=== PATIENT | male | born 1960 | race Caucasian/White ===

== ENCOUNTER → 2017-02-20 | Outpatient (REF) | payer BC, OTHER ==
[2017-02-23 00:06] LABS: Lyme Disease IgG/IgM Antibodie <0.91 ISR (0.00-0.90); Lyme Disease IgM Ab Quantitati <0.80 index (0.00-0.79)
== END ==
LOC: M LAB REF 17:09
PROVIDERS: ATTEND Nurse Practitioner Adult Health
DX: R42 Dizziness and giddiness (principal)

== ENCOUNTER 2017-06-12 12:57 | Outpatient (CLI) | payer BC, OTHER ==
[~2017-06-12] VITALS: Ht 180.3 cm; Wt 79.4 kg
[~2017-06-12 12:57] MED LIST: MELO7.5T7 PO
[2017-06-12] MEDS ORDERED: NS 1,000 ML IV ONE (13:00)
[2017-06-12] MEDS ORDERED: ACET-683 PO (13:12)
[2017-06-12] MEDS ORDERED: PROPOFOL 200 MG/20 ML VIAL As Ordered ONE (14:10)
[2017-06-12] MEDS ORDERED: LIDOCAINE 2% MDV 20 ML VIAL As Ordered ONE (14:10)
--- NOTE | 2017-06-12 14:29 | ROOR ---
Patient Name: Prashanth Hairston Procedure Date: 06/12/2017 2:09 PM Date of : 1960 Age: 57 Room: [facility] Gender: Male Note Status: Finalized Procedure: Total Colonoscopy to Cecum + Cold Snare Polypectomy + Hemoclip Indications: Screening for colorectal malignant neoplasm, Last colonoscopy: 2004 Providers: Aravind Pichardo MD Referring MD: SAMEER JARQUIN JR, MD Requesting Provider: Medicines: Monitored Anesthesia Care Complications: No immediate complications. Procedure: Pre-Anesthesia Assessment: - The heart rate, respiratory rate, oxygen saturations, blood pressure, adequacy of pulmonary ventilation, and response to care were monitored throughout the procedure. The Colonoscope was introduced through the anus and advanced to the cecum, identified by appendiceal orifice and ileocecal valve. The colonoscopy was performed without difficulty. The patient tolerated the procedure well. The quality of the bowel preparation was excellent. Findings: The perianal and digital rectal examinations were normal. Non-bleeding internal hemorrhoids were found during retroflexion. The hemorrhoids were small and Grade I (internal hemorrhoids that do not prolapse). A small polyp was found in the hepatic flexure. The polyp was sessile. The polyp was removed with a cold snare. Resection and retrieval were complete. To prevent bleeding after the polypectomy, one hemostatic clip was successfully placed (MR conditional). There was no bleeding at the end of the procedure. The exam was otherwise without abnormality on direct and retroflexion views. Impression: - Non-bleeding internal hemorrhoids. - One small polyp at the hepatic flexure, removed with a cold snare. Resected and retrieved. Clip (MR conditional) was placed. - The examination was otherwise normal on direct and retroflexion views. - The exam was otherwise normal to the cecum. Recommendation: - Patient has a contact number available for emergencies. The signs and symptoms of potential delayed complications were discussed with the patient. Return to normal activities tomorrow. Written discharge instructions were provided to the patient. - High fiber diet. - Discharge patient to home. - Continue present medications. - Await pathology results. - Telephone GI clinic for pathology results in 1 week. - Check Portal Online for Path Results.([email or web address] - Repeat colonoscopy in 5 years for surveillance based on pathology results. - Return to referring physician. - The findings and recommendations were discussed with the patient's family. Aravind Pichardo MD Aravind Pichardo MD 06/12/2017 2:28:57 PM This report has been signed electronically. Number of Addenda: 0 Note Initiated On: 06/12/2017 2:09 PM Estimated Blood Loss: Estimated blood loss: none.
[2017-06-12 15:05] VITALS: BP 124/65
== END 2017-06-12 15:08 | disposition home or self-care (01) ==
LOC: M OPP 12:57
PROVIDERS: ATTEND Internal Medicine Gastroenterology
DX: Z12.11 Encounter for screening for malignant neoplasm of colon (principal); D12.3 Benign neoplasm of transverse colon; K64.0 First degree hemorrhoids; M48.02 Spinal stenosis, cervical region; Z87.891 Personal history of nicotine dependence; Z79.899 Other long term (current) drug therapy; Z80.3 Family history of malignant neoplasm of breast

== ENCOUNTER → 2019-03-05 | Outpatient (REF) | payer BC, OTHER ==
[~2019-03-05] MED LIST changes: +ACET-683 PO
[2019-03-05 14:07] LABS: BLOOD UREA NITROGEN 12 MG/DL (7-18); CREATININE FOR GFR 0.83 MG/DL (0.70-1.30); GLOMERULAR FILTRATION RATE > 60.0 (>49)
== END ==
LOC: M LABNEURO 10:18
PROVIDERS: ATTEND Psychiatry & Neurology Neurology
DX: I10 Essential (primary) hypertension (principal)

== ENCOUNTER 2019-08-22 09:17 | Emergency (ER) | payer BC, OTHER ==
[~2019-08-22] VITALS: Ht 180.3 cm; Wt 81.2 kg
--- NOTE | 2019-08-22 10:56 | REP ---
DUPLEX DOPPLER EVALUATION RIGHT COMMON FEMORAL ARTERY: Real-time ultrasound evaluation and duplex Doppler interrogation of right common femoral artery performed status post recent cerebral angiogram and femoral artery catheterization. There is normal internal arterial blood flow within the right common femoral artery with no evidence of pseudoaneurysm. There is mild surrounding soft tissue edema. No fluid collection is seen. Electronically Signed by Jose Manuel Corley MD 08/22/2019 04:53 P
[2019-08-22 11:13] VITALS: BP 130/73
== END 2019-08-22 11:20 | disposition home or self-care (01) ==
LOC: M ED 09:17
DX: M25.551 Pain in right hip (principal); R10.30 Lower abdominal pain, unspecified